=== PATIENT | male | born 1945 | race Caucasian/White ===

== ENCOUNTER → 2017-02-01 | Outpatient (CLI) | payer OTHER, BC ==
[2016-11-05 08:22] VITALS: BP 135/88
--- NOTE | 2017-02-01 13:29 | VAS ---
HISTORY: Redness and swelling. History of DVT and PE. Patient is on blood thinner. Study: Left lower extremity venous Doppler Comparison: February 02, 2014. TECHNIQUE: Real-time dynamic grayscale, color flow and complete spectral Doppler ultrasound examina tion of the major deep venous structures were obtained of the left lower extremity. FINDINGS: Left lower extremity: Real-time examination shows no evidence of thrombus within the common femoral, superficial femoral, or popliteal veins. There is normal compressibility throughout. Color flow sanjana ging shows normal venous blood flow within the major vessels. Doppler examination shows normal venou s waveforms with appropriate respiratory variation and augmentation. Note is made of intraluminal f illing defects within dilated superficial vascular structures clustered along the anterior aspect of the left lower extremity below the knee. IMPRESSION: 1. No evidence of DVT in the left lower extremity. 2. Filling defects within several superficial vascular structures in the left lower extremity, likel y representing thrombosed varicose veins. Clinical correlation is recommended. Reported By:
== END ==
LOC: RAD 10:26
PROVIDERS: ATTEND Internal Medicine
DX: I82.891 Chronic embolism and thrombosis of other specified veins (principal); M79.89 Other specified soft tissue disorders; Z86.711 Personal history of pulmonary embolism
CPT/HCPCS: 93971

== ENCOUNTER → 2017-11-13 | Outpatient (CLI) | payer OTHER, BC ==
[2016-11-05 08:22] VITALS: BP 135/88
--- NOTE | 2017-11-13 16:57 | CT ---
HISTORY: Chronic left-sided headache. Study: CT brain without contrast Comparison: None. Technique: Multiple axial images of the brain were obtained from the skull base to the vertex without administra tion of IV contrast. Dose reduction techniques including Automated Exposure Control (AEC) and adjust ment of mA and kV were utilized. Findings: Age-related cortical atrophy and chronic small vessel ischemic changes. No acute intraparenchymal hem orrhage or mass can be identified. No extra-axial fluid collections are seen. No alteration in the attenuation of the brain parenchyma can be identified to suggest acute or subacute ischemic change. The ventricular system is symmetric and nondilated. Complete opacification of the left frontal and ma xillary sinuses. There is complete obstruction of the left frontal ethmoidal recess and left ostiomea jaiden unit. Moderate to severe mucosal thickening of the left ethmoidal air cells. Remaining visualized paranasal sinuses and mastoid air cells are clear. The osseous structures are intact. IMPRESSION: 1. No acute intracranial pathology. 2. Chronic sinus disease as above. Reported By:
== END | disposition home or self-care (01) | DRG 103 ==
LOC: RAD 12:05
PROVIDERS: ATTEND Internal Medicine
DX: R51 Headache (principal); Z86.711 Personal history of pulmonary embolism; J32.8 Other chronic sinusitis
CPT/HCPCS: 70450

== ENCOUNTER 2017-11-15 09:02 | Observation (INO) | payer OTHER, BC ==
[2017-11-15] MEDS ORDERED: NS 1000 ML 1,000 ML ONE (10:15)
[2017-11-15] MEDS ORDERED: ZOFRAN INJ 4 MG VIAL IVP PRN (10:44)
[2017-11-15] MEDS: MORPHINE SULFATE INJ 2 MG INJ IVP PRN (10:59)
[2017-11-15] MEDS ORDERED: ZOSYN VIAL 4.5 GM IV SCH (11:00)
[2017-11-15 11:06] LABS: BASOPHILS # (AUTO) 0.1 X10^3/uL (0.0-0.1); BASOPHILS % (AUTO) 0.9 % (0.2-1.0); EOSINOPHILS # (AUTO) 0.1 x10^3/uL (0.0-0.2); EOSINOPHILS % (AUTO) 0.6 % (0.9-2.9); HEMATOCRIT 41.7 % (42.0-54.0); HEMOGLOBIN 13.8 g/dL (13.5-18.0); LYMPHOCYTES # (AUTO) 0.9 X10^3/uL (1.3-2.9); MEAN CORPUSCULAR HEMOGLOBIN 25.2 pg (27.0-34.0); MEAN CORPUSCULAR HGB CONC 33.2 g/dL (33.0-35.0); MEAN CORPUSCULAR VOLUME 75.9 fL (80.0-100.0); MEAN PLATELET VOLUME 7.5 fL (7.4-11.0); MONOCYTES # (AUTO) 0.5 x10^3/uL (0.3-0.8); MONOCYTES % (AUTO) 6.1 % (0.0-13.0); NEUTROPHILS # (AUTO) 6.9 x10^3/uL (2.2-4.8); NEUTROPHILS % (AUTO) 81.4 % (42.0-75.0); PLATELET COUNT 217 X10^3/uL (150.0-450.0); RED BLOOD COUNT 5.49 X10^6/uL (4.7-6.0); RED CELL DISTRIBUTION WIDTH 18.1 % (11.6-16.5); WHITE BLOOD COUNT 8.5 X10^3/uL (3.6-10.0)
[2017-11-15 11:18] LABS: ALANINE AMINOTRANSFERASE 30 Units/L (12-78); ALKALINE PHOSPHATASE 101 Units/L (46-116); ASPARTATE AMINO TRANSFERASE 16 Units/L (15-37); BLOOD UREA NITROGEN 21 mg/dL (7-18); CALCIUM 8.6 mg/dL (8.5-10.1); CARBON DIOXIDE 26.2 mmol/L (21-32); CHLORIDE 104 mmol/L (98-107); COR NA(FOR HYPERGLY) 141 mmol/L (136-145); CREATININE 1.29 mg/dL (0.70-1.30); SODIUM 141 mmol/L (136-145); TOTAL PROTEIN 7.9 g/dL (6.4-8.2); eGFR BLACK RACES > 60 (>60); eGFR NON BLACK RACES 59 (>60)
[2017-11-15 11:19] LABS: PLATELET MORPHOLOGY COMMENT NORMAL (NORMAL)
[2017-11-15 11:21] VITALS: BMI 33.3
[2017-11-15] MEDS: NS 1000 ML 1,000 ML IV SCH (11:24)
[2017-11-15] MEDS: MUCINEX EXPECTORANT PO SCH ×2 (11:34→21:18)
[2017-11-15] MEDS: ZOSYN VIAL 4.5 GM 4.5 GM in NS 100 ML IV + SPIKE MINIBAG* 100 ML IV SCH ×3 (11:34→21:18)
[2017-11-15] MEDS: SOLU-Medrol 40 MG VIAL IVP SCH ×4 (11:34→21:17)
[2017-11-15] MEDS: COUMADIN TAB 10 MG PO SCH ×2 (12:58→21:18)
[2017-11-15] MEDS: DIOVAN TAB 160 MG PO SCH (12:58)
[2017-11-15] MEDS: SYNTHROID 75 mcg TAB PO SCH (12:59)
[2017-11-16] MEDS: NS 1000 ML 1,000 ML IV SCH ×4 (01:15→17:42)
[2017-11-16 06:07] LABS: BASOPHILS % (AUTO) 0.2 % (0.2-1.0); HEMATOCRIT 39.7 % (42.0-54.0); HEMOGLOBIN 13.2 g/dL (13.5-18.0); LYMPHOCYTES # (AUTO) 0.8 X10^3/uL (1.3-2.9); LYMPHOCYTES % (AUTO) 6.3 % (21.0-51.0); MEAN CORPUSCULAR HEMOGLOBIN 25.2 pg (27.0-34.0); MEAN CORPUSCULAR HGB CONC 33.3 g/dL (33.0-35.0); MEAN CORPUSCULAR VOLUME 75.9 fL (80.0-100.0); MEAN PLATELET VOLUME 7.8 fL (7.4-11.0); MONOCYTES # (AUTO) 0.2 x10^3/uL (0.3-0.8); MONOCYTES % (AUTO) 1.4 % (0.0-13.0); NEUTROPHILS # (AUTO) 12.1 x10^3/uL (2.2-4.8); NEUTROPHILS % (AUTO) 92.1 % (42.0-75.0); PLATELET COUNT 219 X10^3/uL (150.0-450.0); RED BLOOD COUNT 5.24 X10^6/uL (4.7-6.0); RED CELL DISTRIBUTION WIDTH 17.2 % (11.6-16.5); WHITE BLOOD COUNT 13.2 X10^3/uL (3.6-10.0)
[2017-11-16] MEDS: ZOSYN VIAL 4.5 GM 4.5 GM in NS 100 ML IV + SPIKE MINIBAG* 100 ML IV SCH ×3 (06:19→21:01)
[2017-11-16 06:27] LABS: BAND NEUTROPHILS % 5 % (0-10)
[2017-11-16 06:28] LABS: PLATELET MORPHOLOGY COMMENT NORMAL (NORMAL)
[2017-11-16 06:56] LABS: ALANINE AMINOTRANSFERASE 32 Units/L (12-78); ALBUMIN 3.4 g/dL (3.4-5.0); ALKALINE PHOSPHATASE 89 Units/L (46-116); ASPARTATE AMINO TRANSFERASE 14 Units/L (15-37); BLOOD UREA NITROGEN 23 mg/dL (7-18); CALCIUM 8.1 mg/dL (8.5-10.1); CARBON DIOXIDE 22.2 mmol/L (21-32); CHLORIDE 107 mmol/L (98-107); COR NA(FOR HYPERGLY) 143 mmol/L (136-145); CREATININE 1.27 mg/dL (0.70-1.30); SODIUM 141 mmol/L (136-145); TOTAL PROTEIN 7.3 g/dL (6.4-8.2); eGFR BLACK RACES > 60 (>60); eGFR NON BLACK RACES 60 (>60)
[2017-11-16] MEDS: MUCINEX EXPECTORANT PO SCH ×4 (08:32→21:00)
[2017-11-16] MEDS: SYNTHROID 75 mcg TAB PO SCH (08:32)
[2017-11-16] MEDS: DIOVAN TAB 160 MG PO SCH (08:32)
[2017-11-16] MEDS: MORPHINE SULFATE INJ 2 MG INJ IVP PRN (08:35)
[2017-11-16] MEDS: FIORICET TAB PO PRN (10:01)
[2017-11-16] MEDS: COUMADIN TAB 10 MG PO SCH (20:59)
[2017-11-17] MEDS: NS 1000 ML 1,000 ML IV SCH ×3 (04:07→17:49)
[2017-11-17] MEDS: ZOSYN VIAL 4.5 GM 4.5 GM in NS 100 ML IV + SPIKE MINIBAG* 100 ML IV SCH ×3 (05:09→21:04)
[2017-11-17 05:37] LABS: BASOPHILS # (AUTO) 0.1 X10^3/uL (0.0-0.1); BASOPHILS % (AUTO) 0.8 % (0.2-1.0); EOSINOPHILS # (AUTO) 0.1 x10^3/uL (0.0-0.2); EOSINOPHILS % (AUTO) 0.7 % (0.9-2.9); HEMATOCRIT 36.6 % (42.0-54.0); HEMOGLOBIN 12.2 g/dL (13.5-18.0); LYMPHOCYTES # (AUTO) 2.4 X10^3/uL (1.3-2.9); LYMPHOCYTES % (AUTO) 21.6 % (21.0-51.0); MEAN CORPUSCULAR HEMOGLOBIN 25.4 pg (27.0-34.0); MEAN CORPUSCULAR HGB CONC 33.3 g/dL (33.0-35.0); MEAN CORPUSCULAR VOLUME 76.3 fL (80.0-100.0); MEAN PLATELET VOLUME 7.9 fL (7.4-11.0); MONOCYTES # (AUTO) 0.9 x10^3/uL (0.3-0.8); MONOCYTES % (AUTO) 8.4 % (0.0-13.0); NEUTROPHILS # (AUTO) 7.5 x10^3/uL (2.2-4.8); NEUTROPHILS % (AUTO) 68.5 % (42.0-75.0); PLATELET COUNT 209 X10^3/uL (150.0-450.0); RED BLOOD COUNT 4.79 X10^6/uL (4.7-6.0); RED CELL DISTRIBUTION WIDTH 17.7 % (11.6-16.5); WHITE BLOOD COUNT 10.9 X10^3/uL (3.6-10.0)
[2017-11-17 05:50] LABS: ALANINE AMINOTRANSFERASE 27 Units/L (12-78); ALKALINE PHOSPHATASE 73 Units/L (46-116); ASPARTATE AMINO TRANSFERASE 10 Units/L (15-37); BLOOD UREA NITROGEN 29 mg/dL (7-18); CALCIUM 7.2 mg/dL (8.5-10.1); CARBON DIOXIDE 24.1 mmol/L (21-32); CHLORIDE 111 mmol/L (98-107); COR NA(FOR HYPERGLY) 145 mmol/L (136-145); CREATININE 1.26 mg/dL (0.70-1.30); SODIUM 144 mmol/L (136-145); TOTAL PROTEIN 6.2 g/dL (6.4-8.2); eGFR BLACK RACES > 60 (>60); eGFR NON BLACK RACES > 60 (>60)
[2017-11-17 05:58] LABS: PLATELET MORPHOLOGY COMMENT NORMAL (NORMAL)
[2017-11-17] MEDS: SYNTHROID 75 mcg TAB PO SCH (08:19)
[2017-11-17] MEDS: MUCINEX EXPECTORANT PO SCH ×2 (08:19→20:13)
[2017-11-17] MEDS: DIOVAN TAB 160 MG PO SCH (08:19)
[2017-11-17] MEDS: FIORICET TAB PO PRN (08:29)
[2017-11-17] MEDS: FLONASE NASAL SPRAY ENOSTRIL SCH (10:14)
[2017-11-17] MEDS: COUMADIN TAB 10 MG PO SCH (20:13)
--- NOTE | 2017-11-17 22:59 | CT ---
CT paranasal sinuses without contrast Indication: Paranasal sinus disease Technique: Helical images through the face and sinuses without contrast. Coronal and sagittal reforma ts provided. Comparison: 11/13/2017 CT head Findings: There is opacification of the left frontal sinus, anterior left ethmoid air cells and the l eft maxillary sinus, with mild wall sclerosis suggesting some chronicity. Left premolar tooth protrud es into the left maxillary sinus see coronal image 20. This there is mild expansion of the left maxillary antrum with thinning of the medial wall of left ma xillary sinus see coronal image 27. Sclerosis along the lateral wall suggest chronicity. The mandible is intact. Orbital walker are normal. Cervical spine appears grossly normal where visuali zed. Zygomatic arches, nasal bones, mastoid air cells, right maxillary sinus and brain parenchyma oneyda ears normal. Impression: 1. Past occasion of the left maxillary sinus, somewhat chronic appearing given sclerosis. 2. There is expansion of the left maxillary antrum extending into the left ethmoid air cells with thi nning of the adjacent bone. Underlying polyp or lesion should be excluded. ENT follow-up recommended. 3. Left premolar tooth cavity protrudes into the left maxillary sinus. Dental source of maxillary sin us infection not excluded. Reported By:
[2017-11-18] MEDS: NS 1000 ML 1,000 ML IV SCH (04:55)
[2017-11-18] MEDS: ZOSYN VIAL 4.5 GM 4.5 GM in NS 100 ML IV + SPIKE MINIBAG* 100 ML IV SCH (05:09)
[2017-11-18 05:28] LABS: BASOPHILS # (AUTO) 0.2 X10^3/uL (0.0-0.1); BASOPHILS % (AUTO) 2.1 % (0.2-1.0); EOSINOPHILS # (AUTO) 0.1 x10^3/uL (0.0-0.2); EOSINOPHILS % (AUTO) 1.8 % (0.9-2.9); HEMATOCRIT 36.1 % (42.0-54.0); LYMPHOCYTES # (AUTO) 2.1 X10^3/uL (1.3-2.9); LYMPHOCYTES % (AUTO) 27.9 % (21.0-51.0); MEAN CORPUSCULAR HEMOGLOBIN 25.4 pg (27.0-34.0); MEAN CORPUSCULAR HGB CONC 33.3 g/dL (33.0-35.0); MEAN CORPUSCULAR VOLUME 76.3 fL (80.0-100.0); MEAN PLATELET VOLUME 7.9 fL (7.4-11.0); MONOCYTES # (AUTO) 0.7 x10^3/uL (0.3-0.8); MONOCYTES % (AUTO) 9.5 % (0.0-13.0); NEUTROPHILS # (AUTO) 4.5 x10^3/uL (2.2-4.8); NEUTROPHILS % (AUTO) 58.7 % (42.0-75.0); PLATELET COUNT 211 X10^3/uL (150.0-450.0); RED BLOOD COUNT 4.73 X10^6/uL (4.7-6.0); RED CELL DISTRIBUTION WIDTH 18.1 % (11.6-16.5); WHITE BLOOD COUNT 7.7 X10^3/uL (3.6-10.0)
[2017-11-18 05:39] LABS: ALANINE AMINOTRANSFERASE 28 Units/L (12-78); ALBUMIN 2.8 g/dL (3.4-5.0); ALKALINE PHOSPHATASE 68 Units/L (46-116); ASPARTATE AMINO TRANSFERASE 13 Units/L (15-37); BLOOD UREA NITROGEN 25 mg/dL (7-18); CALCIUM 7.1 mg/dL (8.5-10.1); CARBON DIOXIDE 23.6 mmol/L (21-32); CHLORIDE 111 mmol/L (98-107); COR CA(FOR HYPOALB) 8.1 mg/dL (8.5-10.1); CREATININE 1.13 mg/dL (0.70-1.30); SODIUM 142 mmol/L (136-145); TOTAL PROTEIN 6.1 g/dL (6.4-8.2); eGFR BLACK RACES > 60 (>60); eGFR NON BLACK RACES > 60 (>60)
[2017-11-18 05:44] LABS: PLATELET MORPHOLOGY COMMENT NORMAL (NORMAL)
[2017-11-18] MEDS: DIOVAN TAB 160 MG PO SCH (09:53)
[2017-11-18] MEDS: SYNTHROID 75 mcg TAB PO SCH (09:54)
[2017-11-18] MEDS: FLONASE NASAL SPRAY ENOSTRIL SCH (09:54)
[2017-11-18] MEDS: MUCINEX EXPECTORANT PO SCH (09:54)
[2017-11-18 13:23] VITALS: BP 178/91
== END 2017-11-18 11:50 | disposition home or self-care (01) ==
LOC: UNDOADMOB 09:02 → OBS 09:02 → MED/SURG 11-16 16:41
PROVIDERS: ADMIT Internal Medicine; ATTEND Internal Medicine
DX: R41.82 Altered mental status, unspecified (principal); J01.00 Acute maxillary sinusitis, unspecified; J01.10 Acute frontal sinusitis, unspecified; I10 Essential (primary) hypertension; I82.509 Chronic embolism and thrombosis of unspecified deep veins of unspecified lower extremity; Z86.711 Personal history of pulmonary embolism; D64.89 Other specified anemias; R79.1 Abnormal coagulation profile
CPT/HCPCS: 36415; 70486; 80053; 85025; 85610; 85730; 87040; A4222; G0378; J2270; J2405; J2543; J2920